=== PATIENT | female | born 1970 | race Caucasian/White ===

== ENCOUNTER → 2024-01-15 | Outpatient (CLI) | payer OTHER ==
[2024-01-15 14:24] LABS: Basophils # (A) 0.03 X 10*3/uL (0.00-0.10); Basophils % (A) 0.4 %; Eosinophils # (A) 0.23 X 10*3/uL (0.04-0.35); Eosinophils % (A) 2.9 %; HCT 42.7 % (37.2-46.3); HGB 13.8 g/dL (12.0-15.0); Lymphocytes # (A) 2.06 X 10*3/uL (0.90-5.00); Lymphocytes % (A) 26.2 %; MCH 31.2 pg (27.0-32.0); MCHC 32.3 g/dL (32.0-37.0); MCV 96.6 FL (80.0-97.0); Mean Platelet Volume 11.9 FL (9.5-12.2); Monocytes # (A) 0.56 X 10*3/uL (0.20-1.00); Monocytes % (A) 7.1 %; NRBC Per 100 WBC 0 X 10*3/uL (0.00-0.01); Neutrophils # (A) 4.96 X 10*3/uL (1.80-7.70); Neutrophils % (A) 63.1 %; Platelet Count 253 X 10*3/uL (140-440); RBC 4.42 X 10*6/uL (4.10-5.20); RDW 13.4 % (11.5-14.5); WBC 7.86 X 10*3/uL (4.50-10.00)
[2024-01-15 15:32] LABS: INR 1.01 sec (0.93-1.11); Prothrombin Time 10.9 sec (9.9-11.9)
[2024-01-15 16:07] LABS: Blood Urea Nitrogen 11.9 mg/dL (9.0-27.0); Calcium 9.6 mg/dL (8.7-10.3); Carbon Dioxide 22.9 mmol/L (21.6-31.8); Chloride 105 mmol/L (96-109); Glucose 85 mg/dL (70-110); Potassium 4.1 mmol/L (3.5-5.5); Sodium 142 mmol/L (135-145)
--- NOTE | 2024-01-15 18:13 | XR ---
EXAMINATION TYPE: XR chest 2V DATE OF EXAM: 01/15/2024 COMPARISON: None HISTORY: 53 year-old female Z01.818, presurgical evaluation TECHNIQUE: Frontal and lateral views FINDINGS: Heart normal size. Aorta and pulmonary vasculature within normal limits. Mild hyperinflation. Hazy lo wer lung densities relating to overlying soft tissue. No consolidation or pleural effusion. IMPRESSION: Possible underlying COPD. Clinically correlate. No definite acute process.
== END | disposition home or self-care (01) ==
LOC: LABPAT 10:54
PROVIDERS: ATTEND Orthopaedic Surgery
DX: Z01.818 Encounter for other preprocedural examination (principal); Z22.322 Carrier or suspected carrier of Methicillin resistant Staphylococcus aureus; M17.12 Unilateral primary osteoarthritis, left knee; R94.31 Abnormal electrocardiogram [ECG] [EKG]
CPT/HCPCS: 36415; 71046; 80048; 85025; 85610; 87070; 93005

== ENCOUNTER 2024-02-10 08:25 | Observation (INO) | payer OTHER ==
[2024-02-04 11:46] VITALS: BMI 23.0
--- NOTE | 2024-02-09 09:59 | P.HPOR ---
History of Present Illness H&P Date: 02/09/24 Chief Complaint: Left knee pain The patient is a 53-year-old female who presents with progressive left knee pain for the past year. She has diffuse pain and swelling. She has difficulty with walking and weightbearing activities. She has intermittent buckling and locking. She's had 6 previous arthroscopies of the left knee. Review of Systems As per HPI Past Medical History Past Medical History: Asthma, Osteoarthritis (OA) Additional Past Medical History / Comment(s): HAS RESCUE WHEN NEEDED History of Any Multi-Drug Resistant Organisms: None Reported Past Surgical History: Appendectomy, Hysterectomy, Orthopedic Surgery Additional Past Surgical History / Comment(s): LT KNEE SX X 6. RT FOOT SX X 2. RT EYE SURGERY Past Anesthesia/Blood Transfusion Reactions: No Reported Reaction Smoking Status: Former smoker - Past Family History Father Family Medical History: Cancer Medications and Allergies Home Medications Medication Instructions Recorded Confirmed Type Acetaminophen [Tylenol Extra 1,000 mg PO DAILY 02/04/24 02/04/24 History Strength] Albuterol Inhaler [Ventolin Hfa 1 - 2 puff INHALATION Q6H PRN 02/04/24 02/04/24 History Inhaler] Allergies Allergy/AdvReac Type Severity Reaction Status Date / Time Penicillins Allergy Nausea & Verified 02/04/24 11:40 Vomiting, RASH aspirin AdvReac Nausea & Verified 02/04/24 11:40 Vomiting Physical Examination - Knee left Appearance: effusion Effusion grade: grade 1 Tenderness with palpation: anterior, medial Pain: throughout ROM Gait: limping ROM: extension: -10 degrees ROM: flexion: 120 degrees Crepitus with motion: Yes Strength: extension: 5/5 Strength: flexion: 5/5 ACL tests: anterior drawer: grade 1, Josselyn's: grade 1 Meniscal tests: medial meniscal tests: positive, medial joint line pain: positive Results The patient is a well-developed well-nourished female approximately 5 foot 2, 165 pounds of endomorphic. habitus. HEENT exam is nonfocal, neck is supple. She has painless passive motion of her left hip. Straight leg raise is negative. She is tender about the medial joint line of the left knee. Collaterals are stable, Josselyn is 1+, Vandana's is equivocal. Her distal neurovascular appears intact in the left lower extremity. - Diagnostic results Knee x-ray: image reviewed (3 views of the left knee obtained in the office show severe medial and patellofemoral compartment osteoarthrosis along with chondrocalcinosis. Subchondral sclerosis is present.) Assessment and Plan Assessment: Left knee severe medial compartment osteoarthrosis History of left knee ACL reconstruction/multiple arthroscopies Plan: I talked to the patient at length regarding her condition along with treatment options. At this point she remains quite symptomatic despite extensive previous conservative measures. After a thorough discussion she opts to proceed with surgery. We'll plan to proceed with left total knee arthroplasty. Risks and benefits were discussed at length in layman's terms. We will institute DVT prop hylaxis postoperatively.
[~2024-02-10 08:25] MED LIST: HYDROmorphone 0.5 MG/0.5 ML SYRINGE IVP PRN; MELOXICAM 7.5 MG TAB PO PRN; MIDAZOLAM 2 MG/2 ML VIAL IV PRN; TRANEXAMIC 1,000 MG/100ML-NACL 1,000 MG in SALINE 1 100ML.BAG IVPB PRN
[2024-02-10] MEDS: LACTATED RINGERS 1,000 ML IV SCH (08:49)
[2024-02-10] MEDS: ACETAMINOPHEN TAB 500 MG TAB PO PRN (08:57)
[2024-02-10] MEDS: DEXAMETHASONE SOD PHOSPHATE 4 MG/ML 1 ML VIAL IV ONE (08:57)
[2024-02-10] MEDS: ONDANSETRON 4 MG/2 ML VIAL IVP ONE (08:57)
[2024-02-10] MEDS: MIDAZOLAM 2 MG/2 ML VIAL IVP ONE (09:05)
[2024-02-10] MEDS: fentaNYL (PF) 50 MCG/ML 2 ML AMP IVP ONE (09:07)
--- NOTE | 2024-02-10 09:28 | P.ANPRN ---
Procedure Note - Anesthesia - Nerve Block Performed Left Adductor Canal Infusion Time Out Performed: Yes Date of Procedure: 02/10/24 Procedure Start Time: 09:05 Procedure Stop Time: 09:13 Location of Patient: PreOp Indication: Acute Post-Operative Pain, Requested by Surgeon Sedation Type: Sedate with meaningful contact maintained Preparation: Sterile Prep, Sterile Dressing Position: Supine Catheter: Indwelling Needle Types: Pajunk Needle Gauge: 18 Ultrasound used to visualize needle placement: Yes Ultrasound used to observe medication spread: Yes Injectate: 0.5% Ropivacaine (see comment for volume) (15 ml + 10 ml NS) Blood Aspirated: No Pain Paresthesia on Injection Noted: No Resistance on Injection: Normal Image Stored and Saved: Yes Events: Uneventful and Well Tolerated
--- NOTE | 2024-02-10 09:29 | P.ANPRN ---
Procedure Note - Anesthesia - Nerve Block Performed Left iPack Single Time Out Performed: Yes Date of Procedure: 02/10/24 Procedure Start Time: 09:14 Procedure Stop Time: :19 Location of Patient: PreOp Indication: Acute Post-Operative Pain, Requested by Surgeon Sedation Type: Sedate with meaningful contact maintained Preparation: Sterile Prep Position: Right Lateral Needle Types: Pajunk Needle Gauge: 21 Ultrasound used to visualize needle placement: Yes Ultrasound used to observe medication spread: Yes Injectate: 0.5% Ropivacaine (see comment for volume) (15 ml + 10 ml NS + 4 mg Dexamethasone) Blood Aspirated: No Pain Paresthesia on Injection Noted: No Resistance on Injection: Normal Image Stored and Saved: Yes Events: Uneventful and Well Tolerated
[2024-02-10] MEDS: IV FLUID CONTINUATION 1,000 ML IV ONE ×3 (09:33→16:45)
[2024-02-10] MEDS ORDERED: ROPIVACAINE 5 MG/ML 30 ML VIAL ONE (09:53)
[2024-02-10] MEDS ORDERED: PROPOFOL 10 MG/ML 20 ML VIAL IV ONE (09:53)
[2024-02-10] MEDS ORDERED: TRANEXAMIC 1,000 MG/100ML-NACL PREMIX BAG ONE (09:53)
[2024-02-10] MEDS ORDERED: DEXAMETHASONE SOD PHOSPHATE 4 MG/ML 1 ML VIAL ONE (09:53)
[2024-02-10] MEDS ORDERED: PHENYLEPHRINE-0.9% NACL SYG 1,000 MCG/10 ML SYRINGE ONE (09:53)
[2024-02-10] MEDS ORDERED: fentaNYL (PF) 50 MCG/ML 2 ML AMP ONE (09:53)
[2024-02-10] MEDS ORDERED: MIDAZOLAM 2 MG/2 ML VIAL ONE (09:53)
[2024-02-10] MEDS ORDERED: SODIUM CHLORIDE 0.9% (PF) 10 ML VIAL ONE (09:53)
[2024-02-10] MEDS: ceFAZolin 1,000 MG in SODIUM CHLORIDE 0.9% 1,000 ML IRRIGATION ONE (10:23)
[2024-02-10] MEDS: LACTATED RINGERS 1,000 ML IV ONE (11:11)
[2024-02-10] MEDS ORDERED: NALOXONE 0.4 MG/ML 1 ML VIAL IV PRN (11:35)
[2024-02-10] MEDS ORDERED: MAGNESIUM HYDROXIDE 2,400 MG/30 ML CUP PO PRN (11:35)
[2024-02-10] MEDS ORDERED: HYDROmorphone 0.5 MG/0.5 ML SYRINGE IVP PRN (11:35)
[2024-02-10] MEDS ORDERED: HYDROcodone/APAP 5-325MG 1 EACH TAB PO PRN (11:35)
--- NOTE | 2024-02-10 11:51 | P.OP ---
Date of Procedure: 02/10/24 Preoperative Diagnosis: Left knee severe tricompartmental osteoarthrosis Postoperative Diagnosis: Same Procedure(s) Performed: Left total knee arthroplastycementedcruciate retaining Implants: [employer] size 3 cemented femoral component, size 3 cemented tibial component, 10 mm articular surface, 29 mm cemented patellar component. This is a cruciate retaining implant. Anesthesia: regional, spinal Surgeon: Hoang Saunders Senior Manufacturing Technician #1: Eduardo Fox Estimated Blood Loss (ml): 50 Pathology: none sent Condition: stable Disposition: PACU Indications for Procedure: The patient is a 53-year-old female who presents with progressive left knee pain secondary to osteoarthrosis despite conservative measures. A discussion of the risks and benefits of operative intervention versus continued conservative measures was made with the patient. She opted to proceed with surgery. Operative risks include infection, neurovascular injury, development of blood clots, fracture, possible component loosening/failure and possible need for subsequent procedures was discussed. Informed consent was obtained. Operative Findings: As below Description of Procedure: The patient was brought to the operating room, and after induction of spinal anesthesia the left lower extremity was prepped and draped in a normal fashion. The tourniquet was inflated to 270 mmHg. A longitudinal incision extending 3 finger breaths above the superior pole of the patella extending to the medial aspect the tibial tubercle was then made. The skin and subcutaneous tissues were divided sharply. Electrocautery was used for hemostasis. A medial parapatellar arthrotomy was then performed. The medial soft tissues to include the superficial and deep portions of the medial collateral ligament as well as the medial hamstring tendons were elevated subperiosteally. The proximal medial tibia osteophytes were carefully removed. The patella was everted. The knee was flexed. A portion of the retropatellar fat pad was excised sharply. The anterior cruciate ligament was sacrificed. A starting hole was made in the distal femur 1 cm anterior to the posterior cruciate origin. An intramedullary femoral guide was gently inserted planning on 5 valgus distal cut with 9 mm distal resection. The cutting block was pinned in place. The distal cut was then made. The posterior referencing sizing guide was utilized. 3 of external rotation was built into the system and verified off the trans- epicondylar axis and the posterior condyles. I felt size 3 was most appropriate. The cutting block was pinned in place. The anterior, posterior, and chamfer cuts were then made. The bone fragments were removed. A sulcus cut was then made with the appropriate guide. The trial size 3 femoral component was then placed and was fully seated. There was good anterior to posterior and medial to lateral fit. The distal peg holes were then drilled. The trial component was then removed. Attention was then paid towards preparing the proximal tibia. An extra medullary guide was utilized in line with the tibial shaft and second metatarsal distally. A 3 posterior slope was planned. I planned on 2 mm resection from the medial compartment. The cutting block was pinned in place. The proximal tibial cut was then made. The bone was removed in one fragment. The remnants of the medial and lateral menisci were excised the capsule junction with electrocautery. The tibia sized most appropriately at size 3. The posterior osteophytes off the distal femur were carefully removed with a curved osteotome. The trial tibial and femoral components were placed along with a 10 millimeters articular surface. I was able to obtain full flexion and extension with good stability with varus and valgus stress. After several flexion and extension cycles, the tibial rotation was marked with electrocautery in line with the medial one third of the tibial tubercle. Attention was then paid towards preparing the patella. A patella reamer was utilized taking this down to 14 mm of bone stock. A good flush cut was made. The patella sized most appropriately at 29 millimeters. The peg holes were then drilled. The trial component was placed. The knee was taken through a range of motion. I had good patellofemoral tracking with no hands technique. The trial components were then removed. The tibia was prepared in the appropriate rotation with appropriate drill and keel punch. The flexion and extension gaps were checked and felt to be symmetric. The bony surfaces were prepared with pulsatile lavage and dried. The deep tibial component was then cemented in place and was fully seated. Excess cement was removed. The femoral component was cemented in place and was fully seated. Again excess cement was removed. The trial 10 millimeters surface was then inserted in the knee was put in full extension. The patella component was cemented in place. After the cement had sufficiently hardened, the knee was again taken through a range of motion. Again there was good stability in flexion and extension with varus and valgus stress. The trial articular surface was then removed. The final articular surface was placed and was impacted. Care was taken to avoid any soft tissue interposition. Pulsatile lavage was again utilized. The tourniquet was deflated with approximately 60 minutes total tourniquet time. There was minimal drainage therefore a deep drain was not placed. The medial parapatellar arthrotomy was then closed with #2 Ethibond suture. The subcutaneous tissues w ere reapproximated interrupted 2-0 Vicryl sutures. The skin was reapproximated with 3-0 subarticular strata fix suture. Skin tape and adhesive was applied. A sterile dressing was applied. The patient was then awoken from sedation and transferred to recovery room in good condition. Blood loss was estimated at 50 milliliters. No complications were incurred. Sponge and needle counts were correct at the end the case. Eduardo BARTLETT assisted during the major components this case to include exposure, bone resection, and implantation.
[2024-02-10] MEDS: ROPIVACAINE 1,100 MG, SODIUM CHLORIDE 0.9% 500 ML 330 ML, EMPTY PAIN BALL 1 EACH MISCELLANE PRN (12:06)
--- NOTE | 2024-02-10 12:27 | XR ---
EXAMINATION TYPE: XR knee limited LT DATE OF EXAM: 02/10/2024 CLINICAL HISTORY: Postoperative evaluation Two views of the left knee are submitted. Identified are changes of total knee arthroplasty with fem oral and tibial components appearing well seated. Postsurgical soft tissue changes are noted. Align ment is anatomic.
[2024-02-10] MEDS: HYDROcodone/APAP 7.5-325MG 1 EACH TAB PO PRN (16:24)
[2024-02-10] MEDS: HYDROmorphone 1 MG/ML 1 ML SYRINGE IVP PRN (17:09)
[2024-02-10] MEDS: SCOPOLAMINE 1 MG/72 HR PATCH TRANSDERM ONE (17:39)
[2024-02-10] MEDS ORDERED: ALBUTEROL NEBULIZED 2.5 MG/3 ML INHALATION PRN (17:55)
--- NOTE | 2024-02-10 17:57 | P.HPIM ---
History of Present Illness H&P Date: 02/10/24 Patient is a 53-year-old female with a past medical history of asthma who presents to the hospital for elective left knee arthroplasty. Medicine consulted for medical management. Patient seen after surgery. She currently denies any acute complaints. She is looking forward to eating her meal. ROS: 10 ROS reviewed and are negative except as noted in HPI Physical exam General: [Alert and oriented, well nourished, no acute distress]. Eye: [PERRL, EOMI, normal conjunctiva]. HENT: [Normocephalic, clear tympanic membranes, normal hearing, moist oral mucosa, no scleral icterus, no sinus tenderness]. Neck: [Supple, non-tender, no carotid bruits, no JVD, no lymphadenopathy]. Lungs: [Clear to auscultation and percussion, non-labored respiration]. Heart: [Normal rate, regular rhythm, no murmur, gallop or edema]. Abdomen: [Soft, non-tender, non-distended, normal bowel sounds, no masses]. Musculoskeletal: [Restricted range of motion of the left lower extremity]. Skin: Left knee bandage is intact and dry]. Neurologic: [Awake, alert, and oriented X3, CN II-XII intact]. Psychiatric: [Cooperative, appropriate mood and affect]. Assessment and plan Asthma Stable with no wheezing Continue with her home dose albuterol inhaler as needed for wheezing Left knee osteoarthritis Status post left knee total arthroplasty As per your orthopedic surgery management Patient started on Xarelto for DVT prophylaxis PT OT consult DVT prophylaxis: Xarelto Past Medical History Past Medical History: Asthma, Osteoarthritis (OA) Additional Past Medical History / Comment(s): HAS RESCUE WHEN NEEDED History of Any Multi-Drug Resistant Organisms: None Reported Past Surgical History: Appendectomy, Hysterectomy, Orthopedic Surgery Additional Past Surgical History / Comment(s): LT KNEE SX X 6. RT FOOT SX X 2. RT EYE SURGERY Past Anesthesia/Blood Transfusion Reactions: No Reported Reaction Past Psychological History: No Psychological Hx Reported Smoking Status: Former smoker Past Alcohol Use History: None Reported Additional Past Alcohol Use History / Comment(s): QUIT SMOKING ABOUT 10 YRS AGO Past Drug Use History: None Reported - Past Family History Father Family Medical History: Cancer Medications and Allergies Home Medications Medication Instructions Recorded Confirmed Type Acetaminophen [Tylenol Extra 1,000 mg PO DAILY 02/04/24 02/10/24 History Strength] Albuterol Inhaler [Ventolin Hfa 1 - 2 puff INHALATION Q6H PRN 02/04/24 02/10/24 History Inhaler] Allergies Allergy/AdvReac Type Severity Reaction Status Date / Time Penicillins Allergy Nausea & Verified 02/10/24 08:44 Vomiting, RASH aspirin AdvReac Nausea & Verified 02/10/24 08:44 Vomiting "BLOOD THINNERS" AdvReac Unknown Uncoded 02/10/24 08:45 Physical Exam Osteopathic Statement: *. No significant issues noted on an osteopathic structural exam other than those noted in the History and Physical/Consult. Vitals: Vital Signs Temp Pulse Resp BP Pulse Ox 02/10/24 17:14 71 17 109/59 98 02/10/24 16:42 72 20 102/68 97 02/10/24 16:00 64 16 87/56 93 L 02/10/24 15:00 67 16 95/60 98 02/10/24 14:06 82 16 99/61 98 02/10/24 13:37 68 16 94/59 98 02/10/24 13:07 62 16 82/53 98 02/10/24 12:52 59 L 20 90/55 97 02/10/24 12:37 56 L 16 84/56 96 02/10/24 12:22 65 16 83/52 95 02/10/24 12:07 64 16 98/67 96 02/10/24 11:51 97.6 F 66 16 87/53 98 02/10/24 09:35 57 L 16 117/59 100 02/10/24 08:47 98 F 67 16 145/67 97 Intake and Output 02/10/24 02/10/24 02/10/24 06:59 14:59 22:59 Intake Total 3051 100 Output Total 50 Balance 3001 100 Intake: IV 3051 100 Output: Estimated Blood Loss 50 Other: Weight 60.1 kg 60.1 kg Thrombosis Risk Factor Assmnt - Choose All That Apply Any of the Below Risk Factors Present?: Yes Each Factor Represents 1 point: Age 41-60 years Each Risk Factor Represents 2 Points: Major surgery Each Risk Factor Represents 5 Points: Elective major lower extremity arthoplasty Thrombosis Risk Factor Assessment Total Risk Factor Score: 8 Thrombosis Risk Factor Assessment Level: High Risk
[2024-02-10] MEDS: SENNOSIDES-DOCUSATE SODIUM 1 EACH TAB PO SCH (20:40)
[2024-02-10] MEDS: FAMOTIDINE 20 MG TAB PO SCH (21:29)
[2024-02-10] MEDS: hydrOXYzine pamoate 25 MG CAP PO PRN (22:36)
--- NOTE | 2024-02-11 06:58 | P.PN ---
Progress Note - Text Progress Note Date: 02/11/24 Postoperative day # 1 status post total knee arthroplasty, and adductor canal catheter placed for postoperative analgesia, currently at ropivacaine 0.2% 8 mL per hour and continuous infusion, patient getting oral pain medication, and IV Dilaudid for breakthrough pain. Assessment and plan= Acute postoperative pain, adductor canal catheter for pain control, we'll continue the same management.
[2024-02-11 08:47] LABS: Basophils # (A) 0.02 X 10*3/uL (0.00-0.10); Basophils % (A) 0.1 %; Eosinophils # (A) 0.01 X 10*3/uL (0.04-0.35); Eosinophils % (A) 0.1 %; HCT 35.8 % (37.2-46.3); HGB 11.6 g/dL (12.0-15.0); Lymphocytes # (A) 2.14 X 10*3/uL (0.90-5.00); Lymphocytes % (A) 14.4 %; MCH 30.8 pg (27.0-32.0); MCHC 32.4 g/dL (32.0-37.0); Mean Platelet Volume 11.6 FL (9.5-12.2); Monocytes # (A) 1.17 X 10*3/uL (0.20-1.00); Monocytes % (A) 7.9 %; NRBC Per 100 WBC 0 X 10*3/uL (0.00-0.01); Neutrophils # (A) 11.51 X 10*3/uL (1.80-7.70); Neutrophils % (A) 77.2 %; Platelet Count 236 X 10*3/uL (140-440); RBC 3.77 X 10*6/uL (4.10-5.20); RDW 13.9 % (11.5-14.5)
[2024-02-11] MEDS: RIVAROXABAN 10 MG TAB PO SCH (10:12)
--- NOTE | 2024-02-11 11:12 | P.PN ---
Subjective Progress Note Date: 02/11/24 Pt has ongoing complaints of pain, but otherwise is medically stable. Gen: In NAD, non-toxic HEENT: normocephalic, atraumatic, hearing acuity is intant, mucous membranes moist CVS: perfusing all extremities well, no pitting edema, Respiratory: symmetric chest expansion, no accessory muscle use, GI: soft, NTTP, ND, : no suprapubic tenderness, no CVA tenderness MSK/Derm: no rashes, cyanosis Neuro: CN II-XII intact, no motor weakness, Psych: cooperative, euthymic mood, judgment and insight is intact Hospital Course: Patient is a 53-year-old female with a past medical history of asthma who pre sents to the hospital for elective left knee arthroplasty. Medicine consulted for medical management. Assessment and plan: Asthma -Stable with no wheezing -Continue with her home dose albuterol inhaler as needed for wheezing Left knee osteoarthritis Status post left knee total arthroplasty -As per your orthopedic surgery management -Patient started on Xarelto for DVT prophylaxis -PT OT consult DVT prophylaxis: Xarelto Objective - Vital Signs Vital signs: Vital Signs Temp 97.9 F 02/11/24 07:30 Pulse 45 L 02/11/24 07:30 Resp 16 02/11/24 07:30 BP 112/71 02/11/24 07:30 Pulse Ox 98 02/11/24 07:30 FiO2 Intake & Output 02/10/24 02/11/24 02/11/24 18:59 06:59 18:59 Intake Total 3151 Output Total 50 Balance 3101 Weight 60.1 kg Intake: IV 3151 Output: Estimated Blood Loss 50 Other: Voiding Method Toilet # Voids 2 2 - Labs CBC & Chem 7: 02/11/24 04:16 Labs: Abnormal Lab Results - Last 24 Hours (Table) 02/11/24 Range/Units 04:16 WBC 14.90 H (4.50-10.00) X 10*3/uL RBC 3.77 L (4.10-5.20) X 10*6/uL Hgb 11.6 L (12.0-15.0) g/dL Hct 35.8 L (37.2-46.3) % Immature Gran # 0.05 H (0.00-0.04) X 10*3/uL Neutrophils # 11.51 H (1.80-7.70) X 10*3/uL Monocytes # 1.17 H (0.20-1.00) X 10*3/uL Eosinophils # 0.01 L (0.04-0.35) X 10*3/uL
[2024-02-11] MEDS ORDERED: HYDROcodone/APAP 7.5-325MG 1 EACH TAB PO PRN (11:43)
--- NOTE | 2024-02-11 11:47 | P.PN ---
Subjective Progress Note Date: 02/11/24 Principal diagnosis: Left knee osteoarthritis Patient was seen at bedside this morning lying semirecumbent position was dressing present over left knee. Patient says she has been in a lot of pain since surgery yesterday. Patient says prior to surgery she was only taking Tylenol for pain. Patient says she try to work with therapy this morning but did have a difficult time ambulating under her own power. Patient is hoping a sterile morning for additional pain control. Patient says she has urinated since surgery yesterday without issue. Patient says when she does go home her daughter and will build help her out. She says she does have a walker and cane at home. Patient denies any other issues at this time. Objective - Vital Signs Vital signs: Vital Signs Temp 97.9 F 02/11/24 07:30 Pulse 45 L 02/11/24 07:30 Resp 16 02/11/24 07:30 BP 112/71 02/11/24 07:30 Pulse Ox 98 02/11/24 07:30 FiO2 Intake & Output 02/10/24 02/11/24 02/11/24 18:59 06:59 18:59 Intake Total 3151 Output Total 50 Balance 3101 Weight 60.1 kg Intake: IV 3151 Output: Estimated Blood Loss 50 Other: Voiding Method Toilet # Voids 2 2 - Exam Left knee: Incision is clean, dry, and intact. The exofin fusion tape is in good condition. There is minimal soft tissue swelling and ecchymosis surrounding the medial and lateral aspects of the incision. Calf is soft, no tenderness with palpation. Plantar flexion, dorsiflexion, EHL, FHL are intact. Sensory exam to light touch throughout the extremity is intact, dorsal pedis pulses 2+. - Labs CBC & Chem 7: 02/11/24 04:16 Labs: Abnormal Lab Results - Last 24 Hours (Table) 02/11/24 Range/Units 04:16 WBC 14.90 H (4.50-10.00) X 10*3/uL RBC 3.77 L (4.10-5.20) X 10*6/uL Hgb 11.6 L (12.0-15.0) g/dL Hct 35.8 L (37.2-46.3) % Immature Gran # 0.05 H (0.00-0.04) X 10*3/uL Neutrophils # 11.51 H (1.80-7.70) X 10*3/uL Monocytes # 1.17 H (0.20-1.00) X 10*3/uL Eosinophils # 0.01 L (0.04-0.35) X 10*3/uL Assessment and Plan Assessment: 1. Left knee osteoarthritis - Postop day #1 status post left total knee arthroplasty Plan: 1. Left knee osteoarthritis - left total knee arthroplasty performed yesterday, 02/10/2024. Patient stable at bedside this morning. Plan to keep patient more night for additional pain control and therapy. Planning for discharge home tomorrow with health services 2. Appreciate medical management 3. Pain management - Increase pain medication to Wallace 10 mg/325 mg and add Flexeril 10 mg for spasms 4. DVT prophylaxis - Xarelto in hospital 5. GI prophylaxis - senna 6. PT/OT - weightbearing as tolerated with walker 7. Encourage incentive spirometer use 8. Discharge planning - plan for discharge home tomorrow with health services Time with Patient: Less than 30
[2024-02-11] MEDS: CYCLOBENZAPRINE 10 MG TAB PO PRN (11:57)
[2024-02-11] MEDS: HYDROcodone/APAP 10-325MG 1 EACH TAB PO PRN (17:54)
--- NOTE | 2024-02-11 19:29 | US ---
EXAMINATION TYPE: US venous doppler duplex LE LT DATE OF EXAM: 02/11/2024 7:15 PM COMPARISON: NONE CLINICAL INDICATION: Female, 53 years old with history of increased pain/tightness; States left leg p ain and warmth since knee replacement surgery yesterday. No hx of DVT, patient not on blood thinners SIDE PERFORMED: Left TECHNIQUE: The lower extremity deep venous system is examined utilizing real time linear array sonog richard with graded compression, doppler sonography and color-flow sonography. VESSELS IMAGED: Common Femoral Vein Deep Femoral Vein Greater Saphenous Vein * Femoral Vein Popliteal Vein Small Saphenous Vein * Proximal Calf Veins (* superficial vessels) Left Leg: Negative for DVT. Compression pictures deferred throughout the popliteal vein, patient marisol ble to tolerate compression due to pain. Grayscale, color doppler, spectral doppler imaging performed of the deep veins of the lower extremiti es. There is normal flow, compressibility, vascular waveforms. IMPRESSION: No evidence of deep venous thrombosis as visualized. Compression of popliteal vein not performed due to patient tolerance.
[2024-02-11 22:07] VITALS: RESP 18
[2024-02-11] MEDS: KETOROLAC 15 MG/ML 1 ML VIAL IVP ONE (22:51)
--- NOTE | 2024-02-12 09:06 | P.PN ---
Subjective Progress Note Date: 02/12/24 Principal diagnosis: Status post left total knee arthroplasty Patient was evaluated today at bedside, there were nurses present. Patient was dealing with quite a bit of pain yesterday evening, we did add a dose of Toradol 50 mg IV. Patient underwent a Doppler of the left lower extremity due to significant pain, this was negative for DVT. She was unable to tolerate the stairs yesterday. She feels that with getting the pain medicine more scheduled she was doing a lot better into today. She denies any headaches, lightheadedness, chest pain or shortness of breath Objective - Vital Signs Vital signs: Vital Signs Temp 98.2 F 02/12/24 02:02 Pulse 64 02/12/24 02:02 Resp 18 02/12/24 02:02 BP 131/81 02/12/24 02:02 Pulse Ox 99 02/12/24 02:02 FiO2 Intake & Output 02/11/24 02/12/24 02/12/24 18:59 06:59 18:59 Other: # Voids 3 1 # Bowel Movements 1 - Exam Left lower extremity: Incision is clean, dry, and intact. The exofin fusion tape is in good condition. There is minimal soft tissue swelling and ecchymosis surrounding the medial and lateral aspects of the incision. Calf is soft, mild tenderness with palpation. Plantar flexion, dorsiflexion, EHL, FHL are intact. Sensory exam to light touch throughout the extremity is intact, dorsal pedis pulses 2+. - Labs CBC & Chem 7: 02/11/24 04:16 Assessment and Plan Assessment: Postoperative day #2 status post left total knee arthroplasty Plan: Pain control, I did add scheduled Toradol 15 mg IV every 6 hours. Discussed with patient we try to start limiting the IV Dilaudid. She will continue with the [place] and Flexeril DVT prophylaxis, continue Xarelto Ice and elevating to instructions were discussed Continue PT, weight-bear as tolerated with walker Encourage incentive spirometer Medical recommendations appreciated Discharge planning: Patient is hoping to be discharged to home, she does have a few stairs that she has to deal with. I would like to see outpatient does with physical therapy today, we will reevaluate later this afternoon Time with Patient: Less than 30
[2024-02-12] MEDS: KETOROLAC 15 MG/ML 1 ML VIAL IVP SCH (09:10)
[2024-02-12] MEDS: RIVAROXABAN 10 MG TAB PO SCH (20:00)
[2024-02-13 07:22] VITALS: BP 122/74; PULSE 54; TEMP 97.7
--- NOTE | 2024-02-13 09:41 | P.DS ---
Providers Date of admission: 02/11/24 13:04 Expected date of discharge: 02/13/24 Attending physician: Hoang Saunders Consults: 02/10/24 11:35 Consult Physician Routine Consulting Provider: Kevin Manuel Consult Reason/Comments: medical management s/p left total knee arthroplasty Do you want consulting provider notified?: Yes Primary care physician: Stated None Hospital Course: Date of admission: 02/10/2024 Date of discharge: 02/13/2024 Admission diagnosis: Left knee osteoarthritis Discharge diagnosis: Same Attending physician: Dr. Saunders Surgical procedures: Left total knee arthroplasty Brief history: Patient is a 53-year-old female with a history of progressive primary left knee osteoarthritis. At this point patient has failed conservative treatment measures and has opted to proceed with a elective left total knee arthroplasty. Hospital course: Details of patient's surgery can be found in operative report. Patient tolerated the procedure well and was subsequently transported to orthopedic floor. Patient's orthopeidc and medical care was provided daily. Patient had daily laboratory tests performed for evaluation of overall blood counts. Patient had daily physical therapy to include strengthening range of motion as well as education with walker ambulation. Patient was treated with Xarelto for their postoperative DVT prophylaxis during their inpatient stay. Patient was noted to have a relatively uneventful postoperative course. Patient reported satisfactory pain control with oral pain medications by postoperative day 3. Patient showed satisfactory progress with physical therapy. Patient moved steadily through the program and had no difficulty meeting the goals by postoperative day 3. Given patient's otherwise satisfactory course and having met physical therapy goals, plan is to discharge patient home with health services on postoperative day 3. Discharge condition/disposition: Patient will be discharged home with health services in stable condition. Discharge medications: Instructions are given on resumption of patient's normal daily medications per primary care recommendation, in addition patient will be prescribed [place]; Flexeril; senna; Eliquis 2.5 mg twice daily x 2 weeks Discharge instructions: 1. Wound care and infection precautions, keep incision dry and covered while showering, no lotions, creams, moisturizers. No soaking, tubs, pools, hottubs. Do not scrub over the incision. 2. Weight-bear as tolerated with walker / cane until follow-up. 3. Ice and elevate when necessary. Do not exceed 20 minutes per hour with ice pack. 4. Utilize compression sleeve until seen at first follow up appointment. 5. Visiting nursing care. 6. Home physical therapy including home CPM. 7. Pain meds and anticoagulants per prescription. 8. Pain medication has potential to cause constipation. Increase oral fluid and fiber intake. Contact primary care provider if you have not had a bowel movement within 48 hours after discharge 9. No anti-inflammatory medication until discussed at first post operative visit, this including Motrin, Aleve, Mobic, Diclofenac. 10. Follow up in office at 2 weeks postop with Brooks Lopez PA-C / Eduardo Fox PA-C 11. Follow up with your primary care doctor 7-10 days after discharge. 12. Contact [facility] with any questions, . Assessment: Left knee osteoarthritis Procedures: Left total knee arthroplasty Patient Condition at Discharge: Good Plan - Discharge Summary Discharge Rx Participant: Yes New Discharge Prescriptions: No Action Acetaminophen [Tylenol Extra Strength] 1,000 mg PO DAILY Famotidine [Pepcid] 20 mg PO BID Albuterol Inhaler [Ventolin Hfa Inhaler] 1 - 2 puff INHALATION Q6H PRN PRN Reason: Wheezing Discharge Medication List Acetaminophen [Tylenol Extra Strength] 1,000 mg PO DAILY 02/04/24 [History] Albuterol Inhaler [Ventolin Hfa Inhaler] 1 - 2 puff INHALATION Q6H PRN 02/04/24 [History] Famotidine [Pepcid] 20 mg PO BID 02/10/24 [History] Follow up Appointment(s)/Referral(s): Eduardo Fox PAC [PHYSICIAN CLINICAL DOCUMENT IMPROVEMENT EDUCATOR] - 2 Weeks [facility], [NON-STAFF] - 1 Week ([facility] will call you to arrange a visit) Patient Instructions/Handouts: *Surgery [facility] - On-Q Pain Pump Discharge Instructions, Knee Replacement (DC), Knee Replacement (GEN) Activity/Diet/Wound Care/Special Instructions: Orthopedic Discharge Instructions: 1. Wound care and infection precautions, keep incision dry and covered while showering, no lotions, creams, moisturizers. No soaking, pools, hot tubs. Do not scrub over incision. 2. Weight-bear as tolerated with walker / cane until follow-up. 3. Ice and elevate when necessary. Do not exceed 20 minutes per hour with ice pack. 4. Utilize compression sleeve until seen at first follow up appointment. 5. Pain meds and anticoagulants per prescription. 6. Pain medication has potential to cause constipation. Increase oral fluid and fiber intake. Contact primary care provider if you have not had a bowel movement within 48 hours after discharge. 7. No anti-inflammatory medication until discussed at first post operative visit, this including Motrin, Aleve, Mobic, Diclofenac. 8. Follow up in office at 2 weeks postop with Brooks Lopez PA-C / Eduardo Fox PA-C 9. Follow up with your primary care doctor 7-10 days after discharge. 10. Contact [facility] with any questions, . Keep incision clean, dry, intact. While showering, cover fusion tape with Saran wrap. Keep fusion tape on until follow-up appointment office in 2 weeks
--- NOTE | 2024-02-13 09:43 | P.PN ---
Subjective Progress Note Date: 02/13/24 Principal diagnosis: Left knee osteoarthritis Patient was seen at bedside this morning lying in semirecumbent position with dressing present over left knee. Patient says she is looking forward to going home later today. She says she has been up walking around the room doing much better than she was the first couple days after surgery. Patient says she has been urinating without issue. Patient says she has not had a bowel movement yet, however, patient says she has been passing gas. Patient says when she does go home her daughter and will build help her out. She says she does have a walker and cane at home. Patient denies any other issues at this time. Objective - Vital Signs Vital signs: Vital Signs Temp 97.7 F 02/13/24 07:21 Pulse 54 L 02/13/24 07:21 Resp 18 02/13/24 07:21 BP 122/74 02/13/24 07:21 Pulse Ox 94 L 02/13/24 07:21 FiO2 Intake & Output 02/12/24 02/13/24 02/13/24 18:59 06:59 18:59 Other: Voiding Method Toilet Toilet Toilet # Voids 3 3 - Exam Left knee: Incision is clean, dry, and intact. The exofin fusion tape is in good condition. There is minimal soft tissue swelling and ecchymosis surrounding the medial and lateral aspects of the incision. Calf is soft, no tenderness with palpation. Plantar flexion, dorsiflexion, EHL, FHL are intact. Sensory exam to light touch throughout the extremity is intact, dorsal pedis pulses 2+. - Labs CBC & Chem 7: 02/11/24 04:16 Assessment and Plan Assessment: 1. Left knee osteoarthritis - Postop day #3 status post left total knee arthroplasty Plan: 1. Left knee osteoarthritis - left total knee arthroplasty performed 02/10/2024. Patient stable at bedside this morning. discharge home today with health services 2. Appreciate medical management 3. Pain management - [place] 10 mg/325 mg; Flexeril 10 mg 4. DVT prophylaxis - Xarelto in hospital; goign home with eliquis 2.5 mg BID x 2 weeks 5. GI prophylaxis - senna 6. PT/OT - weightbearing as tolerated with walker 7. Encourage incentive spirometer use 8. Discharge planning - discharge home today with health services Time with Patient: Less than 30
[2024-02-13 10:36] LABS: Basophils # (A) 0.03 X 10*3/uL (0.00-0.10); Basophils % (A) 0.3 %; Eosinophils # (A) 0.23 X 10*3/uL (0.04-0.35); Eosinophils % (A) 2.6 %; HCT 35.5 % (37.2-46.3); HGB 11.4 g/dL (12.0-15.0); Lymphocytes # (A) 2.74 X 10*3/uL (0.90-5.00); Lymphocytes % (A) 31.1 %; MCH 30.4 pg (27.0-32.0); MCHC 32.1 g/dL (32.0-37.0); MCV 94.7 FL (80.0-97.0); Mean Platelet Volume 11.8 FL (9.5-12.2); Monocytes # (A) 0.97 X 10*3/uL (0.20-1.00); NRBC Per 100 WBC 0 X 10*3/uL (0.00-0.01); Neutrophils # (A) 4.81 X 10*3/uL (1.80-7.70); Neutrophils % (A) 54.8 %; Platelet Count 217 X 10*3/uL (140-440); RBC 3.75 X 10*6/uL (4.10-5.20); RDW 14.1 % (11.5-14.5)
== END 2024-02-13 11:39 | disposition home health service (06) ==
LOC: OR 08:25 → 4SSUR 11:46 → OR 02-11 13:04
PROVIDERS: ADMIT Orthopaedic Surgery; ATTEND Orthopaedic Surgery
DX: M17.12 Unilateral primary osteoarthritis, left knee (principal); G89.18 Other acute postprocedural pain; Z90.49 Acquired absence of other specified parts of digestive tract; Z90.710 Acquired absence of both cervix and uterus; Z87.891 Personal history of nicotine dependence; J45.909 Unspecified asthma, uncomplicated
CPT/HCPCS: 27447; 97116; 97161; 64999; 64448; 85025 ×2; 73560; 93971; G0378 ×3; C1713; C1776; C1751; J2250; J1100; J0690 ×3; J2405; J3010; J1170 ×4; J2795; J1885 ×3; J2704; J2371

== ENCOUNTER 2024-02-20 09:20 | Emergency (ER) | payer OTHER ==
[2024-02-20] MEDS: KETOROLAC 15 MG/ML 1 ML VIAL IVP STA (10:16)
[2024-02-20 11:07] VITALS: RESP 18
--- NOTE | 2024-02-20 11:16 | US ---
EXAMINATION TYPE: US venous doppler duplex LE LT DATE OF EXAM: 02/20/2024 10:52 AM COMPARISON: NONE CLINICAL INDICATION: Female, 53 years old with history of pain; left knee replacement 1 week ago. Lef t leg pain SIDE PERFORMED: left TECHNIQUE: The lower extremity deep venous system is examined utilizing real time linear array sonog richard with graded compression, doppler sonography and color-flow sonography. VESSELS IMAGED: Common Femoral Vein Deep Femoral Vein Greater Saphenous Vein * Femoral Vein Popliteal Vein Small Saphenous Vein * Proximal Calf Veins (* superficial vessels) Left Leg: no evidence of DVT as visualized. patient unable to tolerate augmentations. anechoic area left popliteal fossa = 3.0 x 0.8 x 1.7cm ?Fam's cyst IMPRESSION: Grayscale, color doppler, spectral doppler imaging performed of the deep veins of the lo wer extremities. There is normal flow, compressibility, vascular waveforms.
--- NOTE | 2024-02-20 11:33 | ED ---
Lower Extremity Injury HPI - General Chief Complaint: Extremity Injury, Lower Stated Complaint: Left knee pain Time Seen by Provider: 02/20/24 09:27 Source: patient, EMS, RN notes reviewed Mode of arrival: EMS Limitations: no limitations - History of Present Illness Initial Comments: 53-year-old female presents to the emergency department with chief complaint of left knee pain. She had surgery 9 days ago. She states she started having creasing swelling she was told that she needs an ultrasound by orthopedic physician. She states she is currently on [place] and Flexeril. Patient states that she still having pain and swelling of her leg. She does admit that she came home and started having issues after starting her CPM and physical therapy. - Related Data Home Medications Medication Instructions Recorded Confirmed Acetaminophen [Tylenol Extra 1,000 mg PO DAILY 02/04/24 02/10/24 Strength] Albuterol Inhaler [Ventolin Hfa 1 - 2 puff INHALATION Q6H PRN 02/04/24 02/10/24 Inhaler] Famotidine [Pepcid] 20 mg PO BID 02/10/24 02/10/24 Previous Rx's Medication Instructions Recorded Apixaban [Eliquis] 2.5 mg PO BID #60 tab 02/13/24 Cyclobenzaprine [Flexeril] 10 mg PO BID #14 tab 02/13/24 HYDROcodone/APAP 10-325MG [[place] 1 tab PO Q6HR PRN #28 tab 02/13/24 10-325] Sennosides/Docusate Sodium [Senna 1 each PO DAILY #20 capsule 02/13/24 Plus 8.6-50 mg Softgel] Allergies Allergy/AdvReac Type Severity Reaction Status Date / Time Penicillins Allergy Nausea & Verified 02/10/24 08:44 Vomiting, RASH aspirin AdvReac Nausea & Verified 02/10/24 08:44 Vomiting "BLOOD THINNERS" AdvReac Unknown Uncoded 02/10/24 08:45 Review of Systems ROS Statement: Those systems with pertinent positive or pertinent negative responses have been documented in the HPI. ROS Other: All systems not noted in ROS Statement are negative. Past Medical History Past Medical History: Asthma, Osteoarthritis (OA) Additional Past Medical History / Comment(s): HAS RESCUE WHEN NEEDED History of Any Multi-Drug Resistant Organisms: None Reported Past Surgical History: Appendectomy, Hysterectomy, Orthopedic Surgery Additional Past Surgical History / Comment(s): LT KNEE SX X 6. RT FOOT SX X 2. RT EYE SURGERY Past Anesthesia/Blood Transfusion Reactions: No Reported Reaction Past Psychological History: No Psychological Hx Reported Smoking Status: Former smoker Past Alcohol Use History: None Reported Past Drug Use History: None Reported - Past Family History Father Family Medical History: Cancer General Exam Limitations: no limitations General appearance: alert, in no apparent distress Head exam: Present: atraumatic, normocephalic, normal inspection Respiratory exam: Present: normal lung sounds bilaterally. Absent: respiratory distress, wheezes, rales, rhonchi, stridor Cardiovascular Exam: Present: regular rate, normal rhythm, normal heart sounds. Absent: systolic murmur, diastolic murmur, rubs, gallop, clicks Extremities exam: Present: other (Left knee moderate swelling neurovascular intact leg pain with range of motion) Course Vital Signs 02/20/24 02/20/24 02/20/24 09:23 11:06 12:04 Temperature 98.3 F 98.3 F 98.1 F Pulse Rate 79 71 70 Respiratory 16 18 18 Rate Blood Pressure 97/72 118/78 117/71 O2 Sat by Pulse 100 98 99 Oximetry Medical Decision Making - Medical Decision Making Was pt. sent in by a medical professional or institution (, PA, FAMILY SERVICE CASEWORKER, urgent care, hospital, or long term...) When possible be specific @ -No Did you speak to anyone other than the patient for history (EMS, parent, family, police, friend...)? What history was obtained from this source @ -No Did you review nursing and triage notes (agree or disagree)? Why? @ -I reviewed and agree with nursing and triage notes Were old charts reviewed (outside hosp., previous admission, EMS record, old EKG, old radiological studies, urgent care reports/EKG's, long term records)? Report findings @ -No old charts were reviewed Differential Diagnosis (chest pain, altered mental status, abdominal pain women, abdominal pain men, vaginal bleeding, weakness, fever, dyspnea, syncope, headache, dizziness, GI bleed, back pain, seizure, CVA, palpatations, mental health, musculoskeletal)? @ -Postop pain, DVT, Fam's cyst EKG interpreted by me (3pts min.). @ -None X-rays interpreted by me (1pt min.). @ -None done CT interpreted by me (1pt min.). @ -None done U/S interpreted by me (1pt. min.). @ -Ultrasound venous Doppler left no acute DVT possible Fam's cyst, fluid collection noted What testing was considered but not performed or refused? (CT, X-rays, U/S, labs)? Why? @ -None What meds were considered but not given or refused? Why? @ -None Did you discuss the management of the patient with other professionals (professionals i.e. , PA, FAMILY SERVICE CASEWORKER, lab, RT, psych nurse, aids social worker, water/wastewater project engineer, teacher, staff weapons officer, briefcase sewer)? Give summary @ -No Was smoking cessation discussed for >3mins.? @ -No Was critical care preformed (if so, how long)? @ -No Were there social determinants of health that impacted care today? How? (Homelessness, low income, unemployed, alcoholism, drug addiction, transportation, low edu. Level, literacy, decrease access to med. care, penitentiary, rehab)? @ -No Was there de-escalation of care discussed even if they declined (Discuss DNR or withdrawal of care, Hospice)? DNR status @ -No What co-morbidities impacted this encounter? (DM, HTN, Smoking, COPD, CAD, Cancer, CVA, ARF, Chemo, Hep., AIDS, mental health diagnosis, sleep apnea, morbid obesity)? @ -None Was patient admitted / discharged? Hospital course, mention meds given and route, prescriptions, significant lab abnormalities, going to OR and other pertinent info. @ -Discharge patient has pulses, ultrasound was negative. Patient has analgesics at home will be discharged she states she feels comfortable with discharge rather than inpatient therapy Undiagnosed new problem with uncertain prognosis? @ -No Drug Therapy requiring intensive monitoring for toxicity (Heparin, Nitro, Insulin, Cardizem)? @ -No Were any procedures done? @ -No Diagnosis/symptom? @ -Status post knee replacement, knee pain Acute, or Chronic, or Acute on Chronic? @ -Acute Uncomplicated (without systemic symptoms) or Complicated (systemic symptoms)? @ -Uncomplicated Side effects of treatment? @ -No Exacerbation, Progression, or Severe Exacerbation? @ -No Poses a threat to life or bodily function? How? (Chest pain, USA, CT, pneumonia, PE, COPD, DKA, ARF, appy, cholecystitis, CVA, Diverticulitis, Homicidal, Suicidal, threat to staff... and all critical care pts) @ -No Disposition Clinical Impression: Status post total left knee replacement, Left knee pain Disposition: HOME SELF-CARE Condition: Stable Instructions (If sedation given, give patient instructions): Knee Pain (ED) Additional Instructions: Please return to the Emergency Department if symptoms worsen or any other concerns. Is patient prescribed a controlled substance at d/c from ED?: No Referrals: None,Stated [Primary Care Provider] - 1-2 days Time of Disposition: 11:33
[2024-02-20 12:05] VITALS: BP 117/71; PULSE 70; TEMP 98.1
== END 2024-02-20 12:26 | disposition home or self-care (01) ==
LOC: EC 09:20
DX: Z96.652 Presence of left artificial knee joint (principal); M25.562 Pain in left knee; Z88.0 Allergy status to penicillin; Z88.6 Allergy status to analgesic agent; Z91.048 Other nonmedicinal substance allergy status
CPT/HCPCS: 99283; 96374 ×2; 93971; 99284; J1885

== ENCOUNTER 2024-05-11 08:27 | Day surgery (SDC) | payer OTHER ==
--- NOTE | 2024-05-10 09:51 | P.HPOR ---
History of Present Illness H&P Date: 05/10/24 Chief Complaint: Left knee stiffness The patient is a 53-year-old female who presents after undergoing left total knee arthroplasty in January of this year with persistent stiffness despite adequate rehabilitation. She otherwise had an uncomplicated postoperative course. She is ambulating independently. Review of Systems Per HPI Past Medical History Past Medical History: Asthma, Osteoarthritis (OA) Additional Past Medical History / Comment(s): HAS RESCUE WHEN NEEDED History of Any Multi-Drug Resistant Organisms: None Reported Past Surgical History: Appendectomy, Hysterectomy, Orthopedic Surgery Additional Past Surgical History / Comment(s): LT KNEE SX X 6. RT FOOT SX X 2. RT EYE SURGERY. Left total knee arthroplasty Past Anesthesia/Blood Transfusion Reactions: No Reported Reaction Past Psychological History: No Psychological Hx Reported Smoking Status: Former smoker Past Alcohol Use History: None Reported Past Drug Use History: None Reported - Past Family History Father Family Medical History: Cancer Medications and Allergies Home Medications Medication Instructions Recorded Confirmed Type Acetaminophen [Tylenol Extra 1,000 mg PO DAILY 02/04/24 02/10/24 History Strength] Albuterol Inhaler [Ventolin Hfa 1 - 2 puff INHALATION Q6H PRN 02/04/24 02/10/24 History Inhaler] Famotidine [Pepcid] 20 mg PO BID 02/10/24 02/10/24 History Apixaban [Eliquis] 2.5 mg PO BID #60 tab 02/13/24 Rx Cyclobenzaprine [Flexeril] 10 mg PO BID #14 tab 02/13/24 Rx HYDROcodone/APAP 10-325MG [[place] 1 tab PO Q6HR PRN #28 tab 02/13/24 Rx 10-325] Sennosides/Docusate Sodium [Senna 1 each PO DAILY #20 capsule 02/13/24 Rx Plus 8.6-50 mg Softgel] Allergies Allergy/AdvReac Type Severity Reaction Status Date / Time Penicillins Allergy Nausea & Verified 02/10/24 08:44 Vomiting, RASH aspirin AdvReac Nausea & Verified 02/10/24 08:44 Vomiting "BLOOD THINNERS" AdvReac Unknown Uncoded 02/10/24 08:45 Physical Examination - Knee left Appearance: previous incision (All healed), other (No warmth or erythema) Tenderness with palpation: none ROM: extension: -10 degrees ROM: flexion: 85 degrees Strength: extension: 5/5 Strength: flexion: 5/5 Results The patient is a well-developed well-nourished female proximal 5 foot 3, 130 pounds of mesomorphic habitus. HEENT exam is nonfocal, neck is supple. She has painless passive motion of her left hip. Straight leg raise is negative. She has limited active motion of the left knee. Collaterals are stable, Homans is negative, her distal neurovascular exam appears intact in the left lower extremity. - Diagnostic results Knee x-ray: image reviewed (Previous x-rays of the left knee obtained show a total knee arthroplasty in good alignment.) Assessment and Plan Assessment: Status post left total knee arthroplasty Left knee arthrofibrosis Plan: I talked to the patient at length regarding her condition along with treatment options. At this point she is remained stiff despite adequate rehabilitation. A discussion of the risks and benefits of manipulation under anesthesia was made with the patient. She opted to proceed. We will likely perform as an outpatient procedure utilizing IV sedation.
[2024-05-10 11:36] VITALS: BMI 23.0
[2024-05-11] MEDS ORDERED: LIDOCAINE 1% (10MG/ML) FOR IV START INTRADERMA PRN (09:04)
[2024-05-11 09:10] VITALS: TEMP 97.1
[2024-05-11] MEDS: IV FLUID CONTINUATION 1,000 ML IV ONE (09:14)
[2024-05-11] MEDS: LACTATED RINGERS 1,000 ML IV SCH (09:20)
[2024-05-11] MEDS ORDERED: PROPOFOL 10 MG/ML 20 ML VIAL IV ONE (09:45)
[2024-05-11] MEDS ORDERED: MIDAZOLAM 2 MG/2 ML VIAL ONE (09:45)
[2024-05-11] MEDS ORDERED: fentaNYL (PF) 50 MCG/ML 2 ML AMP ONE (09:45)
--- NOTE | 2024-05-11 09:55 | P.OP ---
Date of Procedure: 05/11/24 Preoperative Diagnosis: Left knee arthrofibrosis status post total knee arthroplasty Postoperative Diagnosis: Same Procedure(s) Performed: Manipulation under anesthesia left knee Anesthesia: MAC Surgeon: Hoang Saunders Estimated Blood Loss (ml): 0 Pathology: none sent Condition: stable Disposition: PACU Indications for Procedure: The patient is a 53-year-old female who presents with persistent left knee stiffness after undergoing a total knee arthroplasty recently despite adequate rehabilitation. A discussion of the risks and benefits of manipulation under anesthesia was made with the patient. She opted to proceed. Risks of the procedure to include fracture, tendon rupture, possible recurrence of stiffness and need for subsequent procedures was discussed. Informed consent was obtained. Operative Findings: As below Description of Procedure: The patient was brought to the recovery room, and after induction of IV sedation I gently manipulated the left knee. I was able to obtain 125 degrees of flexion along with full extension. Moderate adhesions were encountered. She was then monitored until fully awake. No complications were incurred. There was no blood loss.
[2024-05-11] MEDS: HYDROmorphone 0.5 MG/0.5 ML SYRINGE IVP PRN (10:11)
[2024-05-11 10:21] VITALS: RESP 16
[2024-05-11 10:57] VITALS: BP 122/80; PULSE 52
[2024-05-11] MEDS: HYDROcodone/APAP 5-325MG 1 EACH TAB PO STA (11:01)
== END 2024-05-11 11:32 | disposition home or self-care (01) ==
LOC: OR 08:27
PROVIDERS: ATTEND Orthopaedic Surgery
DX: M24.662 Ankylosis, left knee (principal); J45.909 Unspecified asthma, uncomplicated; M19.90 Unspecified osteoarthritis, unspecified site; Z79.01 Long term (current) use of anticoagulants; Z87.891 Personal history of nicotine dependence; Z88.0 Allergy status to penicillin; Z88.6 Allergy status to analgesic agent; Z90.49 Acquired absence of other specified parts of digestive tract; Z90.710 Acquired absence of both cervix and uterus; Z96.652 Presence of left artificial knee joint
CPT/HCPCS: 27570

== ENCOUNTER → 2025-03-16 | Outpatient (CLI) | payer OTHER ==
--- NOTE | 2025-03-16 14:30 | MM ---
Reason for Exam: Screening (asymptomatic). Last mammogram was performed 1 year(s) and 2 month(s) ago. Patient History: Menarche at age 13. First Full-Term at age 18. Left ovary removed at age 34. Hysterectomy at age 34. Postmenopausal. Risk Values: Archana 5 year model risk: 1.0%. NCI Lifetime model risk: 6.6%. Prior Study Comparison: 10/31/2022 Bilateral Screening Mammogram, [facility]. 11/14/2022 Left Diagnostic Mammogram, [facility]. 11/14/2022 Left Diagnostic Ultrasound, [facility]. 07/10/2023 Left Diagnostic Mammogram, [facility]. 07/10/2023 Left Diagnostic Ultrasound, [facility]. 07/22/2023 Left Diagnostic Mammogram, [facility]. 07/22/2023 Left Diagnostic Ultrasound, [facility]. 08/08/2023 Left Diagnostic Mammogram, [facility]. 01/13/2024 Bilateral Diagnostic Mammogram, [facility]. Tissue Density: There are scattered areas of fibroglandular density. Findings: Analyzed By CAD. There is no suspicious group of microcalcifications or new suspicious mass in either breast. Overall Assessment: Negative, BI-RAD 1 Management: Screening Mammogram of both breasts in 1 year. . Patient should continue monthly self-breast exams. A clinical breast exam by your physician is recommended on an annual basis. This exam should not preclude additional follow-up of suspicious palpable abnormalities. Note on Archana scores and lifetime risk: 1. A Archana score greater than 3% is considered moderate risk. If this is the case, consider specialist referral to assess eligibility for a risk reducing agent. 2. If overall lifetime risk for the development of breast cancer is 20% or higher, the patient may qualify for future screening with alternating mammogram and breast MRI. [facility], , 03/16/2025 2:27 PM. Electronically signed and approved by: Luis Latham M.D. [facility]
== END | disposition home or self-care (01) ==
LOC: RADMAMWWP 13:13
PROVIDERS: ATTEND Family Medicine
DX: Z12.31 Encounter for screening mammogram for malignant neoplasm of breast (principal); R92.323 Mammographic fibroglandular density, bilateral breasts; Z78.0 Asymptomatic menopausal state
CPT/HCPCS: 77063; 77067